=== PATIENT | male | born 1965 | race Caucasian/White ===

== ENCOUNTER → 2020-06-24 | Outpatient (CLI) | payer BC ==
[~2020-06-24] MED LIST: ADVIL200 MG PO; AGELESS MALE PO; BACTRIM DS TAB1 EACH PO; FAMOTIDINE40 MG PO; HYDROCODONE-AC1 EACH PO; IMURAN50 MG PO; LANSOPRAZOLE30 MG PO; PREDNISONE 50 M50 MG PO; PREDNISONE20 MG PO; XYLOCAINE VISC100 ML TOP
[2020-06-24 15:50] LABS: BUN/CREATININE RATIO 32 (0-10)
[2020-06-24 16:02] LABS: HEMOGLOBIN 12.8 gm/dl (14.0-17.5); RED BLOOD COUNT 4.2 M/UL (4.20-5.50); WHITE BLOOD COUNT 7.6 K/UL (4.5-11.0)
[2020-06-25 09:14] LABS: HBSAG SCREEN Negative (Negative); HEP B CORE AB, TOT Negative (Negative)
[2020-06-25 12:09] LABS: HCV AB <0.1 (0.0-0.9)
[2020-06-27 16:11] LABS: A/G RATIO 0.9 (0.7-1.7); ALBUMIN 3.1 g/dL (2.9-4.4); ALPHA-1-GLOBULIN 0.3 g/dL (0.0-0.4); ALPHA-2-GLOBULIN 0.8 g/dL (0.4-1.0); BETA GLOBULIN 1.1 g/dL (0.7-1.3); GAMMA GLOBULIN 1.4 g/dL (0.4-1.8); GLOBULIN, TOTAL 3.5 g/dL (2.2-3.9); M-SPIKE Comment: g/dL (Not Observed); PROTEIN, TOTAL, SERUM 6.6 g/dL (6.0-8.5)
[2020-06-28 16:12] LABS: QUANTIFERON MITOGEN VALUE 1.56 IU/mL (.); QUANTIFERON NIL VALUE 0.02 IU/mL (.); QUANTIFERON TB1 AG VALUE 0.04 IU/mL (.); QUANTIFERON TB2 AG VALUE 0.04 IU/mL (.); QUANTIFERON-TB GOLD PLUS Negative (Negative)
== END ==
LOC: LAB 14:04
PROVIDERS: Internal Medicine
DX: M33.90 Dermatopolymyositis, unspecified, organ involvement unspecified (principal); Z72.0 Tobacco use; R91.8 Other nonspecific abnormal finding of lung field
CPT/HCPCS: 36415; 71046; 80053; 83874; 84155; 84165; 85025; 86038; 86235; 86704; 86803; 87340

== ENCOUNTER 2020-07-11 10:35 | Emergency (ER) | payer BC ==
[2020-07-11 11:35] LABS: HEMOGLOBIN 12.7 gm/dl (14.0-17.5); RED BLOOD COUNT 4.2 M/UL (4.20-5.50); WHITE BLOOD COUNT 5.9 K/UL (4.5-11.0)
[2020-07-11 12:07] LABS: BUN/CREATININE RATIO 30 (0-10)
[2020-07-11] MEDS ORDERED: FAMOTIDINE40 MG PO (17:16)
[2020-07-11] MEDS ORDERED: IMURAN50 MG PO (17:16)
[2020-07-11] MEDS ORDERED: XYLOCAINE VISC100 ML TOP (17:16)
[2020-07-11] MEDS ORDERED: PREDNISONE 50 M50 MG PO (17:17)
[2020-07-11] MEDS ORDERED: BACTRIM DS TAB1 EACH PO (17:18)
[2020-10-11] MEDS ORDERED: HYDROCODONE-AC1 EACH PO (16:38)
[2020-10-11] MEDS ORDERED: PREDNISONE20 MG PO (16:38)
[2020-10-11] MEDS ORDERED: LANSOPRAZOLE30 MG PO (16:39)
[2020-10-11] MEDS ORDERED: AGELESS MALE PO (16:39)
[2020-10-11] MEDS ORDERED: ADVIL200 MG PO (16:40)
== END 2020-07-11 22:11 | disposition short-term general hospital (02) ==
LOC: ER1 10:35 → CDU 16:31 → ER1 16:31
PROVIDERS: Student in an Organized Health Care Education/Training Program
DX: R07.0 Pain in throat (principal); R04.2 Hemoptysis; Z20.822 Contact with and (suspected) exposure to COVID-19; R13.10 Dysphagia, unspecified; Z88.5 Allergy status to narcotic agent; Z79.899 Other long term (current) drug therapy; Z87.891 Personal history of nicotine dependence
CPT/HCPCS: 0240U; 71045; 80053; 81001; 82550; 82553; 82803; 83605; 83690; 83874; 84484; 85025; 85652; 86140; 87040; 87081; 87880; 93005; 96365; 96368; 96375; 99283; J0696; J2270; J2405

== ENCOUNTER → 2020-08-04 | Outpatient (CLI) | payer BC ==
[~2020-08-04] VITALS: Ht 177.8 cm; Wt 77.1 kg
[2020-08-04 09:48] LABS: RED BLOOD COUNT 3.68 M/UL (4.20-5.50); WHITE BLOOD COUNT 9.5 K/UL (4.5-11.0)
[2020-08-04 10:27] LABS: BUN/CREATININE RATIO 24 (0-10)
[2020-08-15 22:11] LABS: ANTI-EJ AB (RDL) Negative (Negative); ANTI-JO-1 AB (RDL) <20 Units (<20); ANTI-KU AB (RDL) Negative (Negative); ANTI-MDA-5 AB (CADM-140)(RDL) 43 Units (<20); ANTI-MI-2 AB (RDL) Negative (Negative); ANTI-NXP-2 (P140) AB (RDL) <20 Units (<20); ANTI-OJ AB (RDL) Negative (Negative); ANTI-PL-12 AB (RDL) Negative (Negative); ANTI-PL-7 AB (RDL) Negative (Negative); ANTI-PM/SCL-100 AB (RDL) <20 Units (<20); ANTI-SRP AB (RDL) Negative (Negative); ANTI-TIF-1GAMMA AB (RDL) <20 Units (<20); ANTI-U1 RNP AB (RDL) <20 Units (<20); ANTI-U2 RNP AB (RDL) Negative (Negative); ANTI-U3 RNP (FIBRILLARIN)(RDL) Negative (Negative)
== END ==
LOC: OPSV 08-03 10:00
PROVIDERS: Internal Medicine
DX: M33.90 Dermatopolymyositis, unspecified, organ involvement unspecified (principal)
CPT/HCPCS: 36415; 80053; 82085; 82550; 83516; 85025; 86235; 96365; 96366; J1568; J1720

== ENCOUNTER → 2020-08-05 | Outpatient (CLI) | payer BC ==
[~2020-08-05] VITALS: Ht 177.8 cm; Wt 77.1 kg
== END ==
LOC: OPSV 07:45
DX: M33.90 Dermatopolymyositis, unspecified, organ involvement unspecified (principal)
CPT/HCPCS: 96365; 96366; 96375; J1568; J1720

== ENCOUNTER → 2020-08-23 | Outpatient (CLI) | payer BC | LOC: KOH-I 08:29 | DX: M33.90 Dermatopolymyositis, unspecified, organ involvement unspecified (principal) | CPT/HCPCS: 73718 ==

== ENCOUNTER → 2020-09-01 | Outpatient (CLI) | payer BC ==
[2020-09-01 08:55] LABS: HEMOGLOBIN 11.6 gm/dl (14.0-17.5); RED BLOOD COUNT 3.94 M/UL (4.20-5.50); WHITE BLOOD COUNT 7.4 K/UL (4.5-11.0)
[2020-09-01 09:33] LABS: BUN/CREATININE RATIO 33 (0-10)
== END ==
LOC: OPSV 08:00
PROVIDERS: Internal Medicine
DX: M33.90 Dermatopolymyositis, unspecified, organ involvement unspecified (principal)
CPT/HCPCS: 36415; 80048; 85027; 96365; 96366; 96375; J1568; J1720

== ENCOUNTER → 2020-09-02 | Outpatient (CLI) | payer BC ==
[~2020-09-02] VITALS: Ht 177.8 cm; Wt 77.1 kg
== END ==
LOC: OPSV 08:00
DX: M33.90 Dermatopolymyositis, unspecified, organ involvement unspecified (principal)
CPT/HCPCS: 96365; 96366; 96375; J1568; J1720

== ENCOUNTER → 2020-09-07 | Outpatient (CLI) | payer BC | LOC: HEART 5 09:14 | DX: M33.90 Dermatopolymyositis, unspecified, organ involvement unspecified (principal) | CPT/HCPCS: 94060; 94729 ==

== ENCOUNTER → 2020-09-26 | Outpatient (CLI) | payer BC | LOC: RAD 12:22 | DX: M33.90 Dermatopolymyositis, unspecified, organ involvement unspecified (principal) | CPT/HCPCS: 71046 ==

== ENCOUNTER → 2020-09-29 | Outpatient (CLI) | payer BC ==
[~2020-09-29] VITALS: Ht 182.9 cm; Wt 77.0 kg
[2020-09-29 08:38] LABS: HEMOGLOBIN 11.9 gm/dl (14.0-17.5); RED BLOOD COUNT 3.97 M/UL (4.20-5.50); WHITE BLOOD COUNT 5.2 K/UL (4.5-11.0)
[2020-09-29 08:58] LABS: BUN/CREATININE RATIO 34 (0-10)
== END ==
LOC: OPSV 07:58
PROVIDERS: Internal Medicine
DX: M33.90 Dermatopolymyositis, unspecified, organ involvement unspecified (principal); Z79.899 Other long term (current) drug therapy; R74.01 Elevation of levels of liver transaminase levels
CPT/HCPCS: 36415; 80048; 80076; 85027; 96365; 96366; 96375; J1568; J1720

== ENCOUNTER → 2020-09-30 | Outpatient (CLI) | payer BC ==
[~2020-09-30] VITALS: Ht 177.8 cm; Wt 77.1 kg
== END ==
LOC: OPSV 07:58
DX: M33.10 Other dermatomyositis, organ involvement unspecified (principal)
CPT/HCPCS: 96365; 96366; J1568; J1720

== ENCOUNTER → 2020-10-13 | Day surgery (SDC) | payer BC ==
[~2020-10-13] MED LIST changes: +DILTIAZEM 24HR120 M1 PO; +HYDROCODON-ACE1 EAC2 PO; -HYDROCODONE-AC1 EACH PO; +PREDINSONE PO; -PREDNISONE20 MG PO; +PREDNISONE5 MG PO
== END | disposition home or self-care (01) ==
LOC: OR 05:52
DX: M33.12 Other dermatomyositis with myopathy (principal); K21.9 Gastro-esophageal reflux disease without esophagitis; Z79.52 Long term (current) use of systemic steroids; I95.9 Hypotension, unspecified; Z87.891 Personal history of nicotine dependence
CPT/HCPCS: J0690; J1100; J2001; J2250; J2370; J2405; J2704; J3010; J7030; J7120

== ENCOUNTER → 2020-10-27 | Outpatient (CLI) | payer BC ==
[~2020-10-27] VITALS: Ht 177.8 cm; Wt 77.1 kg
[2020-10-27 07:35] LABS: HEMOGLOBIN 13.2 gm/dl (14.0-17.5); RED BLOOD COUNT 4.46 M/UL (4.20-5.50); WHITE BLOOD COUNT 3.8 K/UL (4.5-11.0)
[2020-10-27 07:58] LABS: BUN/CREATININE RATIO 18 (0-10)
== END ==
LOC: OPSV 07:09
PROVIDERS: Internal Medicine
DX: M33.90 Dermatopolymyositis, unspecified, organ involvement unspecified (principal); R74.01 Elevation of levels of liver transaminase levels
CPT/HCPCS: 36415; 80048; 80076; 85027; 96365; 96366; J1568; J1720

== ENCOUNTER → 2020-10-28 | Outpatient (CLI) | payer BC ==
[~2020-10-28] VITALS: Ht 177.8 cm; Wt 77.1 kg
== END ==
LOC: OPSV 06:51
DX: M33.90 Dermatopolymyositis, unspecified, organ involvement unspecified (principal)
CPT/HCPCS: 96365; 96366; 96375; J1568; J1720

== ENCOUNTER → 2020-11-08 | Outpatient (CLI) | payer BC | LOC: US 10:00 → CT 10:30 → US 10:46 → ECHO 11:00 | DX: M33.90 Dermatopolymyositis, unspecified, organ involvement unspecified (principal); R06.00 Dyspnea, unspecified; I95.9 Hypotension, unspecified; R74.01 Elevation of levels of liver transaminase levels; R63.4 Abnormal weight loss; R91.8 Other nonspecific abnormal finding of lung field; K76.0 Fatty (change of) liver, not elsewhere classified | CPT/HCPCS: ECHO; 71250; 76705; 93306 ==

== ENCOUNTER → 2020-11-24 | Outpatient (CLI) | payer BC ==
[~2020-11-24] VITALS: Ht 177.8 cm; Wt 77.1 kg
[2020-11-24 08:03] LABS: HEMOGLOBIN 12.9 gm/dl (14.0-17.5); RED BLOOD COUNT 4.65 M/UL (4.20-5.50); WHITE BLOOD COUNT 4.8 K/UL (4.5-11.0)
[2020-11-24 08:30] LABS: BUN/CREATININE RATIO 15 (0-10)
== END ==
LOC: OPSV 07:00
PROVIDERS: Internal Medicine
DX: M33.90 Dermatopolymyositis, unspecified, organ involvement unspecified (principal)
CPT/HCPCS: 36415; 80048; 85027; 96365; 96366; 96375; J1568; J1720

== ENCOUNTER → 2020-11-25 | Outpatient (CLI) | payer BC ==
[~2020-11-25] VITALS: Ht 177.8 cm; Wt 77.1 kg
== END ==
LOC: OPSV 07:00
DX: M33.90 Dermatopolymyositis, unspecified, organ involvement unspecified (principal)
CPT/HCPCS: 96365; 96366; J1568

== ENCOUNTER 2020-12-01 13:44 | Inpatient (IN) | payer BC ==
[~2020-12-01] VITALS: Ht 177.8 cm; Wt 72.6 kg
[~2020-12-01 13:44] MED LIST changes: -ADVIL200 MG PO; -DILTIAZEM 24HR120 M1 PO; -HYDROCODON-ACE1 EAC2 PO; -LANSOPRAZOLE30 MG PO; -PREDINSONE PO; -PREDNISONE5 MG PO
[2020-12-01 15:04] LABS: HEMOGLOBIN 12.1 gm/dl (14.0-17.5); RED BLOOD COUNT 4.12 M/UL (4.20-5.50); WHITE BLOOD COUNT 5.6 K/UL (4.5-11.0)
[2020-12-01 15:58] LABS: BUN/CREATININE RATIO 27 (0-10)
[2020-12-02 05:15] LABS: HEMOGLOBIN 11.3 gm/dl (14.0-17.5); RED BLOOD COUNT 3.9 M/UL (4.20-5.50); WHITE BLOOD COUNT 2.4 K/UL (4.5-11.0)
[2020-12-02 05:43] LABS: BUN/CREATININE RATIO 21 (0-10)
[2020-12-02] MEDS ORDERED: PREDNISONE5 MG PO (16:38)
[2020-12-02] MEDS ORDERED: HYDROCODON-ACE1 EAC2 PO (16:38)
[2020-12-02] MEDS ORDERED: LANSOPRAZOLE30 MG PO (16:39)
[2020-12-02] MEDS ORDERED: ADVIL200 MG PO (16:40)
--- NOTE | 2020-12-02 22:34 | NUR ---
RECEIVED CALL FROM TELE PT CONVERTED TO AFIB RATE OF [id number] ON MONITOR. PT WAS IN BATHROOM AND RETURNED TO BED. CONTACTED PROVIDER REC'D ORDERS FOR STAT EKG AND CARDIZEM 10 MG. THIS RN NOT ACLS CONTACTED NURSING SOCIAL DIRECTOR FOR ASSISTANCE AND IS ARRANGING FOR PT TRANSFER.
[2020-12-03 04:35] LABS: HEMOGLOBIN 12.3 gm/dl (14.0-17.5)
[2020-12-03 04:41] LABS: RED BLOOD COUNT 4.32 M/UL (4.20-5.50); WHITE BLOOD COUNT 5.6 K/UL (4.5-11.0)
[2020-12-03 04:59] LABS: BUN/CREATININE RATIO 20 (0-10)
[2020-12-04 04:50] LABS: HEMOGLOBIN 10.9 gm/dl (14.0-17.5); WHITE BLOOD COUNT 6.7 K/UL (4.5-11.0)
[2020-12-04 04:52] LABS: RED BLOOD COUNT 3.77 M/UL (4.20-5.50)
[2020-12-04 05:24] LABS: BUN/CREATININE RATIO 28 (0-10)
[2020-12-05 03:22] LABS: HEMOGLOBIN 10.4 gm/dl (14.0-17.5); RED BLOOD COUNT 3.61 M/UL (4.20-5.50)
[2020-12-05 03:42] LABS: BUN/CREATININE RATIO 27 (0-10)
[2020-12-05] MEDS ORDERED: PREDINSONE PO (11:31)
[2020-12-05] MEDS ORDERED: DILTIAZEM 24HR120 M1 PO (11:31)
[2020-12-10 01:12] LABS: CANNABIDIOL Negative (.); CANNABINOID CONFIRMATION Negative (.); CANNABINOL Negative (.); CARBOXY-THC Negative (.); HYDROXY-THC Negative (.); TETRAHYDROCANNABINOL(THC) Negative (.)
[2020-12-11 11:11] LABS: 6-ACETYLMORPHINE Negative (.); CODEINE Negative (.); DIHYDROCODEINE 1.3 ng/mL (.); HYDROCODONE 20.9 ng/mL (.); HYDROMORPHONE Negative (.); MORPHINE Negative (.); OPIATE CONFIRMATION Positive (.); OXYCODONE Negative (.); OXYCODONES CONFIRMATION Negative (.); OXYMORPHONE Negative (.)
== END 2020-12-05 13:17 | disposition home or self-care (01) | DRG 545 ==
LOC: ER1 13:44 → CDU 18:00 → MED SURG 4 12-02 15:52 → PROG CARE 12-03 00:53
PROVIDERS: Physician Assistant; ADMIT Internal Medicine
DX: M33.91 Dermatopolymyositis, unspecified with respiratory involvement (principal); J96.01 Acute respiratory failure with hypoxia; J44.1 Chronic obstructive pulmonary disease with (acute) exacerbation; E44.1 Mild protein-calorie malnutrition; M60.9 Myositis, unspecified; J84.112 Idiopathic pulmonary fibrosis; I48.91 Unspecified atrial fibrillation; F17.210 Nicotine dependence, cigarettes, uncomplicated; I95.9 Hypotension, unspecified; E87.6 Hypokalemia; I08.1 Rheumatic disorders of both mitral and tricuspid valves; Z96.649 Presence of unspecified artificial hip joint; Z79.82 Long term (current) use of aspirin; Z79.52 Long term (current) use of systemic steroids; Z79.1 Long term (current) use of non-steroidal anti-inflammatories (NSAID); Z68.22 Body mass index [BMI] 22.0-22.9, adult
CPT/HCPCS: 36415; 36600; 71045; 80048; 80053; 80307; 82550; 82553; 82803; 82962; 83036; 83540; 83550; 83605; 83735; 83874; 83880; 84100; 84439; 84443; 84484; 85025; 85027; 85652; 86140; 93005; 94640; 94760; 97162; 99285; J1650; J2920; J2930; Q9967; U0002

== ENCOUNTER 2021-01-02 09:27 | Emergency (ER) | payer BC ==
[2021-01-02 10:02] LABS: HEMOGLOBIN 13.8 gm/dl (14.0-17.5); RED BLOOD COUNT 4.66 M/UL (4.20-5.50); WHITE BLOOD COUNT 12.4 K/UL (4.5-11.0)
[2021-01-02 10:19] LABS: BUN/CREATININE RATIO 21 (0-10)
== END 2021-01-02 13:47 | disposition home or self-care (01) ==
LOC: ER1 09:27
PROVIDERS: Student in an Organized Health Care Education/Training Program
DX: J84.112 Idiopathic pulmonary fibrosis (principal); J96.11 Chronic respiratory failure with hypoxia; M33.10 Other dermatomyositis, organ involvement unspecified; F17.200 Nicotine dependence, unspecified, uncomplicated; Z20.822 Contact with and (suspected) exposure to COVID-19
CPT/HCPCS: 36600; 71045; 80053; 82803; 85025; 93005; 99285; U0002

== ENCOUNTER → 2021-01-02 | Outpatient (CLI) | payer BC ==
[~2021-01-02] VITALS: Ht 177.8 cm; Wt 77.1 kg
[~2021-01-02] MED LIST changes: +ADVIL200 MG PO; +DILTIAZEM 24HR120 M1 PO; +HYDROCODON-ACE1 EAC2 PO; +LANSOPRAZOLE30 MG PO; +PREDINSONE PO; +PREDNISONE5 MG PO
== END ==
LOC: OPSV 09:00
DX: M33.10 Other dermatomyositis, organ involvement unspecified (principal)
CPT/HCPCS: 96375; 96413; 96415; J2930; J7030; J9312